=== PATIENT | female | born 1975 | race Caucasian/White ===

== ENCOUNTER 2016-10-20 11:19 | Day surgery (SDC) | payer OTHER ==
--- NOTE | 2016-10-19 15:22 | HP ---
Jo Ann TINAJERO : 1975 V DATE OF SERVICE: October 19, 2016 DATE OF PLANNED SURGERY: October 20, 2016 HISTORY OF PRESENT ILLNESS: This is a 41-year-old female who sustained an injury to her right ankle while ice-skating on October 08, 2016. She had difficulty bearing weight and was seen [facility] who obtained x-rays and documented a minimally displaced lateral malleolus fracture but was concerned about some medial clear space widening. She was placed into a splint and sent here for follow up. On presentation today she complains of ongoing pain. She has been nonweightbearing using a walker. She has no previous history of injuries to the site and no other extremity complaints. PAST MEDICAL HISTORY: Negative. PAST SURGICAL HISTORY: Negative. REVIEW OF SYSTEMS: No recent constitutional symptoms to include fevers and chills. No recent cardiovascular symptoms to include chest pain or palpitations. No recent respiratory symptoms to include shortness of breath or recent infections. PHYSICAL EXAMINATION: GENERAL: Patient is a well-developed, well-nourished female in no acute distress. They are awake, alert and conversant throughout the encounter. CARDIOVASCULAR: Intact peripheral pulses on bilateral lower extremities. No significant edema on inspection of bilateral lower extremities. NEUROLOGIC: Patient had intact coordinated composite motion of the bilateral lower extremities and sensation intact to light touch in all distributions of bilateral lower extremities. PSYCHIATRIC: Patient was oriented to person, place and time and displayed appropriate mood and affect during the encounter. SKIN: Exam of the skin on bilateral lower extremities showed no significant scars, lesions, rashes or masses. FOCUSED MUSCULOSKELETAL EXAM: The patient is mobilizing with the assistance of the walker. She is touchdown weight bearing on the right side. She has normal resting station of the hips and knees. Her right ankle is in about 10 degrees of plantar flexion. She has significant ecchymosis about the ankle as well as significant swelling but she does have some early wrinkles signs showing. There are no blisters. She is no erythema. She is tender to palpation over the whole lateral side of the ankle and also has some tenderness over the medial malleolus. She has limited motion secondary to pain. There is no evidence of rosendo ankle instability. She does have pain with a gentle external rotation stress. Her foot is warm and well perfused with intact sensation and a normal resting tone. DIAGNOSTIC IMAGING: A review of her x-rays shows a Spencer B fracture of the distal fibula with a slight lateral subluxation of the lateral malleolus and the talus with increased clear space widening. There also appears to be increased clear space between the tibia and fibula. ASSESSMENT: A 41-year-old female with a Spencer B ankle fracture deltoid ligament injury and a possible syndesmosis injury. PLAN: The plan will be for open reduction internal fixation with a lateral plate and screws and possible syndesmosis reconstruction screws versus TightRopes. The risks, benefits and alternatives were discussed with the patient and she elected to proceed and informed consent was obtained and documented in the chart the patient was placed on the schedule for surgery tomorrow. Job [id number] STAT Cc: [facility]
[2016-10-20] MEDS ORDERED: LACTATED RINGERS 1,000 ML ONE (11:23)
[2016-10-20] MEDS ORDERED: IV START KIT ONE (11:23)
[2016-10-20] MEDS ORDERED: CEFAZOLIN SODIUM 2 GRAM PREMIX 100 ML IV ONE (11:24)
[2016-10-20] MEDS ORDERED: FENTANYL 5 ML ONE (13:28)
[2016-10-20] MEDS ORDERED: PROPOFOL 20 ML IV ONE (13:28)
[2016-10-20] MEDS ORDERED: ONDANSETRON 4 MG/2ML 2 ML VIAL ONE (13:28)
[2016-10-20] MEDS ORDERED: MIDAZOLAM HCL 1 MG/ML 2ML VIAL ONE (13:28)
[2016-10-20] MEDS ORDERED: LIDOCAINE 2% (PRES FREE) 5 ML VIAL ONE (13:28)
[2016-10-20] MEDS ORDERED: ROPIVACAINE 0.5% 30 ML VIAL ONE (14:15)
[2016-10-20] MEDS ORDERED: DEXAMETHASONE SOD PHOS 4 MG/1 ML VIAL ONE ×2 (14:15→15:03)
[2016-10-20] MEDS ORDERED: NERVE BLOCK PROCEDURAL TRAY 1 EACH ONE (14:16)
[2016-10-20] MEDS ORDERED: BUPIVACAINE 0.5% W/EPI SDV 30 ML VIAL ONE (15:21)
--- NOTE | 2016-10-20 16:14 | RAD ---
Exam: Two-view right ankle COMPARISON: 10/09/2016 INDICATION: Intraoperative right ankle. ORIF. Findings: Fluoroscopy was provided for Dr. Serrano. 15.2 seconds of fluoroscopy time was utilized. 2 static images were submitted for interpretation. These images demonstrate postsurgical changes of lateral plate and screw fixation of the distal right fibula, as well as evidence of transsyndesmotic fixation through the distal tibia and fibula. No unexpected fracture is identified. Ankle mortise is intact. Soft tissue swelling is present. IMPRESSION: Fluoroscopy was provided for Dr. Serrano for right ankle ORIF.
--- NOTE | 2016-10-20 16:19 | PCMBPN ---
Brief Post Op Note: Date of Procedure: 10/20/16 Start Time: 1600 Preoperative Diagnosis: 1. right ankle fracture and syndesmosis disruption Postoperative Diagnosis: 1. Same Procedure: right ankle ORIF with syndesmosis stabilization Surgeon: Mark Serrano MD Assist: Bogadn Ortiz PA-C Anesthesia: Ana Lei Findings: as above Condition: stable to PACU Complications: none IV Fluids: 1400 mLs of LR Urine Output: 0 mLs Estimated Blood Loss: 10 mLs Tourniquet Time: 40 min at 250 mm Hg Specimens: N/A Implants: 1 lag screw 3.5 mm, 1/3 tubular plate (6-hole) with 2 cancellous screws and 3 cortical screws. 1 syndesmosis tightrope. Drains: N/A Mark Serrano MD
[2016-10-20] MEDS ORDERED: PROMETHAZINE HCL 25 MG/ML VIAL IM PRN (16:35)
[2016-10-20] MEDS ORDERED: HYDROMORPHONE HCL 1 MG/ML SYRINGE IV PRN ×2 (16:35→16:54)
[2016-10-20] MEDS ORDERED: KETOROLAC TROMETHAMINE 30 MG/ML 1 ML VIAL IV ONE (16:35)
[2016-10-20] MEDS ORDERED: NALOXONE HCL 0.4 MG/ML VIAL IV PRN (16:35)
[2016-10-20] MEDS ORDERED: MEPERIDINE 25 MG/ML SYRINGE IV PRN (16:35)
[2016-10-20] MEDS ORDERED: ATROPINE SULFATE 0.4 MG/1 ML VIAL IV PRN (16:35)
[2016-10-20] MEDS ORDERED: ONDANSETRON 4 MG/2ML 2 ML VIAL IV PRN ×2 (16:35→16:54)
[2016-10-20] MEDS ORDERED: FENTANYL 100 MCG/2 ML VIAL IV PRN (16:35)
[2016-10-20] MEDS ORDERED: LACTATED RINGERS 1,000 ML IV SCH ×2 (16:45→16:54)
[2016-10-20] MEDS ORDERED: OXYCODONE/ACETAMINOPHEN 5/325 MG TABLET PO PRN (16:54)
[2016-10-20] MEDS ORDERED: DIPHENHYDRAMINE HCL 50 MG/1 ML VIAL IV PRN (16:54)
[2016-10-20] MEDS ORDERED: KETOROLAC TROMETHAMINE 30 MG/ML 1 ML VIAL IV PRN (16:54)
[2016-10-20] MEDS ORDERED: OXYCODONE/ACETAMINOPHEN 5/325 MG TABLET ONE ×2 (18:02)
[2016-10-20] MEDS ORDERED: KETOROLAC TROMETHAMINE 30 MG/ML 1 ML VIAL ONE (18:03)
[2016-10-20] MEDS ORDERED: SODIUM CHLORIDE 0.9% FLUSH 10 ML ONE (18:05)
--- NOTE | 2016-10-21 15:47 | OP ---
Jo Ann TINAJERO [id number] : 1975 DATE OF PROCEDURE: October 20, 2016 PREOPERATIVE DIAGNOSES: Right ankle fracture and syndesmosis disruption. POSTOPERATIVE DIAGNOSES: Right ankle fracture and syndesmosis disruption. PROCEDURE PERFORMED: RIGHT ANKLE OPEN REDUCTION INTERNAL FIXATION WITH SYNDESMOSIS STABILIZATION. SURGEON: Mark Serrano M.D. PATIENT PORTAL REPRESENTATIVE: Bogdan Ortiz P.A.-C. ANESTHESIA: Kellen Crooks.N.Hugh. SPECIMENS: No material was sent to the laboratory. ESTIMATED BLOOD LOSS: 10 mL. FLUIDS REPLACED: 1400 mL of crystalloid. TOURNIQUET TIME: 40 minutes at 250 mmHg. URINE OUTPUT: None. IMPLANTS: One-third tubular plate with two cancellous screws distally and three cortical screws proximally, one 3.5 mm cortical lag screw and one syndesmosis TightRope. INDICATIONS: This is a 41-year-old female who sustained a twisting injury to her right ankle and demonstrated a distal fibula fracture with a syndesmosis disruption and medial clear space widening. Given her history, physical exam and radiographic findings it was recommended that she undergo an open reduction internal fixation with stabilization of her syndesmosis in order to restore appropriate anatomic alignment to her mortise. Risks, benefits, alternatives were discussed at length with the patient and she elected to proceed with surgery. Informed consent was obtained and documented in the chart and she was placed on the schedule the first available convenience. DESCRIPTION OF PROCEDURE: The patient was identified in the preoperative holding area where she was marked with an indelible marker by the operating surgeon. The anesthesia providers did a popliteal block under ultrasound guidance and then she was taken to the operating room where she was placed in a supine position on the operating room table. General anesthesia was induced. Perioperative antibiotics were administered. A well padded pre-calibrated nonsterile tourniquet was placed on her right upper thigh and she was prepped and draped in the usual sterile fashion for surgery. An operative time out was performed and confirmed by all members of the operative team. A longitudinal incision was made over the distal portion of the patient's fibula. Neurovascular structures were identified and protected. Dissection was carried down and a periosteal flap was elevated anteriorly and posteriorly. The fracture was exposed and displaced. The fracture callus was debrided. The fracture was reduced and held in place with a lobster claw reduction forceps. A single 3.5 mm lag screw was placed obtaining interfragmentary compression and then a one third tubular plate was bent and held in place for use of a neutralization plate. Two cancellous screws were placed on the distal fragment. There was not room for a third. Three cortical screws were placed proximally into the proximal fragment with bicortical purchase. At this point an intraoperative Cotton test was performed and intraoperative fluoroscopy demonstrated widening of the syndesmosis. The pelvic reduction clamp was brought onto the field and placed across the two malleoli and pressure was applied reducing the ankle mortise. With the clamp in place we drilled the guide pin, over drilled with the cannulated drill bit and placed a syndesmosis TightRope with excellent tension. The clamp was removed and the external rotation thrust test showed no evidence of further widening of the medial clear space for the syndesmosis. Excess suture was cut off. The wound was copiously irrigated with sterile saline, #2-0 Vicryl was used to close the periosteum over the plate and a #3-0 Nylon in the skin in a running fashion. The tourniquet was deflated. A sterile dressing of Xeroform, fluffs, ABD and an LEESA bandage was applied and the patient was placed into a fracture boot. The drapes were removed and the patient was awakened from her anesthesia, extubated in the operating room without difficulty, transferred to a stretcher and taken postoperatively to the postanesthesia care unit in stable condition. There were no observed intraoperative complications during this procedure. Job [id number] Cc: [facility]
== END 2016-10-20 18:41 | disposition home or self-care (01) ==
LOC: SDC 11:19
PROVIDERS: ATTEND Orthopaedic Surgery
PROC: 0QSJ04Z Reposition Right Fibula with Internal Fixation Device, Open Approach (ICD-10-PCS; principal; 2016-10-20)
DX: S82.61XA Displaced fracture of lateral malleolus of right fibula, initial encounter for closed fracture (principal); X50.1XXA Overexertion from prolonged static or awkward postures, initial encounter; Y93.21 Activity, ice skating
CPT/HCPCS: 73600; 76000; 27792; J3010; J1100 ×2; J2795; A9270 ×2; J1885; J2250; J2405; J7120; J0690